=== PATIENT | female | born 1945 | race African-American/Black ===

== ENCOUNTER 2023-09-28 22:08 | Emergency (ER) | payer MEDICARE, MEDICAID ==
[~2023-09-28] VITALS: Ht 170.2 cm; Wt 50.0 kg
[2023-09-28 22:55] VITALS: BP 135/77; PULSE 95; RESP 16; TEMP 97.8; O2SAT 99
[2023-09-28 23:37] LABS: HEMATOCRIT. 36.7 % (36.0-48.0); HEMOGLOBIN. 12.5 g/dL (12.0-16.0); MEAN CORPUSCULAR HEMOGLOBIN 28.9 pg (28.0-32.0); MEAN CORPUSCULAR HGB CONC 33.9 g/dL (31.0-37.0); MEAN CORPUSCULAR VOLUME 85.4 fL (81.0-99.0); PLATELET 162 x1000/uL (130-400); RED CELL DISTRIBUTION WIDTH 14.1 % (11.6-14.6)
[2023-09-28 23:42] LABS: CARBON DIOXIDE 26 mEq/L (21-32); CHLORIDE 95 mEq/L (98-107); POTASSIUM 3.3 mEq/L (3.5-5.1); SODIUM 131 mEq/L (136-145)
[2023-09-28 23:43] LABS: CALCIUM 8.8 mg/dL (8.7-10.4)
[2023-09-28 23:48] LABS: CREATININE 1.1 mg/dL (0.6-1.0); GLUCOSE 111 mg/dL (70-105); UREA NITROGEN BLOOD 26 mg/dL (9-23)
[2023-09-28 23:49] LABS: ALANINE AMINOTRANSFERASE 22 IU/L (10-49); ASPARTATE AMINOTRANSFERASE 49 IU/L (<34)
[2023-09-28 23:50] LABS: BILIRUBIN TOTAL 0.4 mg/dL (0.1-1.0); PROTEIN TOTAL 7.4 g/dL (6.0-8.3)
[2023-09-28 23:57] LABS: DIFFERENTIAL COMMENT 1
[2023-09-29 04:40] LABS: OVALOCYTES 1+; PLATELET ESTIMATE NORMAL; TEAR DROP CELLS 2+
== END 2023-09-29 01:47 | disposition left against medical advice (07) ==
LOC: ER 22:08
DX: E86.0 Dehydration (principal); Z53.21 Procedure and treatment not carried out due to patient leaving prior to being seen by health care provider
CPT/HCPCS: 36415; 80053; 85025; 93005